=== PATIENT | female | born 1970 | race Caucasian/White ===

== ENCOUNTER 2023-06-21 15:33 | Emergency (ER) | payer MEDICAID ==
[~2023-06-21] VITALS: Ht 152.4 cm; Wt 45.4 kg
[2023-06-21 16:04] VITALS: BP_SYST 141; PULSE 76; RESP 17; TEMP 97.5; O2SAT 99
[2023-06-21] MEDS ORDERED: KETOROLAC TROMETHAMINE 30 MG VIAL IM ONE (16:30)
[2023-06-21] MEDS ORDERED: AZIT-93 PO (17:03)
[2023-06-21] MEDS ORDERED: PRED20TA PO (17:03)
[2023-06-21 17:24] VITALS: BP_SYST 141; PULSE 76; RESP 17; TEMP 97.5; O2SAT 99
== END 2023-06-21 17:24 | disposition home or self-care (01) ==
LOC: SED 15:33
DX: R07.81 Pleurodynia (principal); R05.9 Cough, unspecified; F17.200 Nicotine dependence, unspecified, uncomplicated; Z79.899 Other long term (current) drug therapy
CPT/HCPCS: 99283; 71100; 96372; J1885